=== PATIENT | female | born 1975 | race African-American/Black ===

== ENCOUNTER 2017-05-05 19:21 | Emergency (ER) | payer OTHER ==
[~2017-05-05] VITALS: Ht 165.1 cm; Wt 49.9 kg
[2017-05-05 19:24] VITALS: BP 102/68
--- NOTE | 2017-05-05 19:25 | NUR ---
PATIENT BIB ALS TO ER BED 8.
--- NOTE | 2017-05-05 19:30 | NUR ---
41Y F BIBA C/O ETOH FOUND AT [facility] SLUMPED ON BENCH. PT STATES SHE IS OUT OF HER MEDICATION ZYPREXA STRONGEST DOSE PER PT STATEMENT. PT DENIES ANY SOB,CP AT THE MOMENT. PT SAYS SHE HAS BIPOLAR AND NKA
--- NOTE | 2017-05-05 19:30 | NUR ---
[facility] ESTABLISHED IV 18G TO RIGHT AC AND DELIVERED 1L NACL 0.9% AND IVP ZOFRAN 4MG
--- NOTE | 2017-05-05 19:40 | NUR ---
PATIENT BEING EVALUATED BY DR. ALMEIDA.
[2017-05-05] MEDS ORDERED: MULTIVITAMIN-12 10 ML, THIAMINE 100 MG, MAGNESIUM SULFATE 50% 2,000 MG, FOLIC ACID 5 MG... IV ONE ×5 (19:51)
[2017-05-05] MEDS ORDERED: MULTIVITAMIN-12 10 ML VIAL IV ONE (20:03)
[2017-05-05] MEDS ORDERED: FOLIC ACID 5 MG/ML SYR ONE (20:03)
[2017-05-05] MEDS ORDERED: MAGNESIUM SULFATE 50% 1000 MG/2 ML VIAL IV ONE (20:03)
[2017-05-05] MEDS ORDERED: THIAMINE 200 MG/2 ML VIAL ONE (20:03)
--- NOTE | 2017-05-05 20:21 | NUR ---
CONTACT "ALLY" [phone][facility]
[2017-05-05 20:22] LABS: BASOPHILS # (AUTO) 0.1 K/uL (0.00-0.22); BASOPHILS % (AUTO) 1.2 % (0.0-2.0); EOSINOPHILS # (AUTO) 0.2 K/uL (0-0.4); EOSINOPHILS % (AUTO) 1.6 % (0.0-4.0); HEMATOCRIT 33.8 % (36-48); HEMOGLOBIN 11.2 g/dL (12.0-16.0); MEAN CORPUSCULAR HEMOGLOBIN 30 pg (27-31); MEAN CORPUSCULAR HGB CONC 33 g/dL (33-37); MEAN CORPUSCULAR VOLUME 90 fL (80-94); MONOCYTES # (AUTO) 0.5 K/uL (0.8-1.0); MONOCYTES % (AUTO) 5.1 % (1.7-9.3); NEUTROPHILS # (AUTO) 8.3 K/uL (1.8-7.7); NEUTROPHILS % (AUTO) 82.1 % (42.2-75.2); PLATELET COUNT (AUTO) 251 K/uL (140-450); RED BLOOD CELL COUNT(AUTO) 3.74 MIL/uL (4.20-5.40); RED CELL DISTRIBUTION WIDTH 14.5 % (11.6-13.7); WHITE BLOOD COUNT (AUTO) 10.1 K/uL (4.8-10.8)
[2017-05-05 20:30] LABS: BARBITURATE, URINE NEG. ng/ml (NEG <=200); BENZODIAZEPINE, URINE NEG. ng/mL (NEG <=200); CANNABINOID, URINE POS. ng/mL (NEG <=50); COCAINE, URINE NEG. ng/mL (NEG <=300); OPIATE, URINE NEG. ng/mL (NEG <=2000); PHENCYCLIDINE SCREEN,URINE NEG. ng/mL (NEG <=25)
[2017-05-05 20:34] LABS: ALBUMIN 4.2 g/dL (3.4-5.0); CARBON DIOXIDE 22.4 mmol/L (21-32); CREATININE 0.8 mg/dL (0.6-1.3); POTASSIUM 4.4 mmol/L (3.5-5.1); TOTAL BILIRUBIN 0.3 mg/dL (0.0-1.0)
[2017-05-05] MEDS ORDERED: ONDANSETRON 4 MG/2 ML VIAL IVP ONE ×2 (22:55→23:05)
--- NOTE | 2017-05-06 00:47 | NUR ---
SPOKE TO , OKAY TO COME TO [facility] TO [facility] [employer] [facility] PT
--- NOTE | 2017-05-06 01:20 | NUR ---
IV removed, catheter intact and site benign. Applied folded 4x4 gauze and tape to stop bleeding.
--- NOTE | 2017-05-06 01:23 | NUR ---
Patient discharged with v/s stable. Written and verbal after care instructions given and explained. Patient verbalized understanding. Ambulatory with steady gait. All questions addressed prior to discharge. Advised to follow up with PMD.
[2017-05-06 01:24] VITALS: BP 109/71
== END 2017-05-06 01:23 | disposition home or self-care (01) ==
LOC: MED 19:21
DX: F10.129 Alcohol abuse with intoxication, unspecified (principal); F31.9 Bipolar disorder, unspecified
CPT/HCPCS: 36415; 80053; 80305; 81025; 85025; 96365; 96366; 96375; 99285; A9153; G0482; J2405; J3411; J3475; J3490; J7030